=== PATIENT | female | born 1980 | race African-American/Black ===

== ENCOUNTER 2017-12-06 14:51 | Inpatient (IN) | payer SELFPAY ==
[~2017-12-06] VITALS: Ht 165.1 cm; Wt 56.7 kg
[~2017-12-06 14:51] MED LIST: BACTRIM; CEPHALEXIN; MOTRIN
[2017-12-06] MEDS ORDERED: PROPOFOL 200MG/20ML VIAL IV ONE (15:30)
[2017-12-06] MEDS ORDERED: LACTATED RINGERS 1,000 ML IV SCH (15:30)
[2017-12-06 15:38] LABS: BASOPHILS % 0.7 % (0.0-2.0); EOSINOPHILS % 1.7 % (0.0-5.0); HEMATOCRIT. 38.6 % (36.0-48.0); HEMOGLOBIN. 13.1 g/dL (12.0-16.0); LYMPHOCYTES % 32.4 % (20.0-50.0); MEAN CORPUSCULAR HEMOGLOBIN 30.8 pg (28.0-32.0); MEAN CORPUSCULAR VOLUME 90.9 fL (81.0-99.0); MEAN PLATELET VOLUME 9.8 fl (7.4-10.4); MONOCYTES % 6.2 % (2.0-8.0); PLATELET 189 x1000/uL (130-400); RED BLOOD CELL COUNT 4.25 mill/uL (4.2-5.4); RED CELL DISTRIBUTION WIDTH 12.9 % (11.6-14.6)
[2017-12-06] MEDS ORDERED: FENTANYL CITRATE/PF 50MCG/ML 2ML VIAL IV PRN (16:00)
[2017-12-06] MEDS ORDERED: ONDANSETRON HCL 4MG/2ML VIAL IV PRN (16:00)
[2017-12-06] MEDS ORDERED: GLYCOPYRROLATE 0.2 MG/ML 2ML VIAL ONE (16:01)
[2017-12-06] MEDS ORDERED: FENTANYL CITRATE/PF 50MCG/ML 2ML VIAL ONE (16:44)
[2017-12-06] MEDS ORDERED: SKIN ADHESIVE 0.7 GM EA TOP ONE (18:17)
[2017-12-06] MEDS ORDERED: HYDROCODONE/ACETAMINOPHEN 5/325MG TABLET PO PRN (20:15)
[2017-12-06] MEDS ORDERED: IBUPROFEN 600MG TABLET PO PRN (20:15)
[2017-12-06 21:25] VITALS: BP 124/74
[2017-12-06 21:54] VITALS: BP 124/74
[2017-12-07] VITALS: BP 100/47
[2017-12-07 04:00] VITALS: BP 105/57
[2017-12-07 15:13] VITALS: BP 102/55
== END 2017-12-07 16:00 | disposition home or self-care (01) | DRG 545 ==
LOC: OR 14:51 → 6EST 21:30
PROVIDERS: ADMIT Obstetrics & Gynecology Obstetrics; ATTEND Obstetrics & Gynecology Obstetrics
PROC: 0W9J4ZZ Drainage of Pelvic Cavity, Percutaneous Endoscopic Approach (ICD-10-PCS; 2017-12-06)
PROC: 10D27ZZ Extraction of Products of Conception, Ectopic, Via Natural or Artificial Opening (ICD-10-PCS; principal; 2017-12-06 15:30)
DX: O00.102 Left tubal pregnancy without intrauterine pregnancy (principal); K66.1 Hemoperitoneum; O26.891 Other specified pregnancy related conditions, first trimester; Z82.49 Family history of ischemic heart disease and other diseases of the circulatory system; Z83.3 Family history of diabetes mellitus; Z3A.00 Weeks of gestation of pregnancy not specified
CPT/HCPCS: 36415; 85025; J2405; J2704; J3010; J3490; J7120